=== PATIENT | male | born 1955 | race Caucasian/White ===

== ENCOUNTER 2016-12-23 06:59 | Day surgery (SDC) | payer OTHER ==
[2016-12-18 11:09] VITALS: BMI 30.4
[2016-12-23] MEDS ORDERED: PROPOFOL 20 ML ONE ×4 (07:10→09:34)
[2016-12-23] MEDS ORDERED: LIDOCAINE HCL/PF 2% SDV 5ML VIAL ONE (07:11)
[2016-12-23 10:34] VITALS: BP 113/58; PULSE 64; TEMP 98.1
--- NOTE | 2016-12-24 12:16 | PATH ---
Surgical Pathology Report Patient Name: ADOLFO DHILLON [facility]. Rec. #: [id number] /Age/Gender: 1955 (Age: 61) / M Account: [id number] Location: [facility]OS[facility] Taken: 12/23/2016 Received: 12/23/2016 Reported: 12/24/2016 Physicians: Naveen Moon M.D. Specimen(s) Received A: BX PROXIMAL RIGHT COLON B: BX HEPATIC FLEXURE C: BX 25 CM COLON D: BX 40 CM COLON Clinical History Rule out colon cancer Polyp Final Diagnosis A. COLON, PROXIMAL RIGHT, BIOPSY: TUBULAR ADENOMA. B. COLON, HEPATIC FLEXURE, POLYPECTOMY: MULTIPLE PORTIONS OF TUBULOVILLOUS ADENOMA. NO HIGH GRADE DYSPLASIA OR INVASIVE ADENOCARCINOMA IDENTIFIED. C. COLON, 25 CM, BIOPSY: TUBULAR ADENOMA. D. COLON, 40 CM, POLYPECTOMY: TUBULAR ADENOMA. Comment: Recommend correlation with clinical findings and follow up as clinically indicated. Electronically Signed Juanjose Hidalgo M.D. Gross Description A. Received in formalin, labeled "proximal right colon" is a chandra, polypoid portion of soft tissue measuring 0.4 cm. in greatest dimension. The specimen is submitted in toto in one cassette. B. Received in formalin labeled "hepatic flexure," is a 2.5 x 2.5 x 0.3 cm aggregate of chandra, irregular to polypoid soft tissue fragments. The formalin is filtered and the specimen is entirely submitted in one cassette. C. Received in formalin, labeled "25 cm" is a chandra, irregular portion of soft tissue measuring 0.5 cm. in greatest dimension. The specimen is submitted in toto in one cassette. D. Received in formalin, labeled "40 cm" is a chandra, polypoid portion of soft tissue measuring 0.7 cm. in greatest dimension. The specimen is submitted in toto in one cassette. DL12/23/2016 saudi12/23/2016
== END 2016-12-23 10:36 | disposition home or self-care (01) ==
LOC: FASU-ENDO 06:59
PROVIDERS: ATTEND Internal Medicine Gastroenterology
PROC: 3E0H8GC Introduction of Other Therapeutic Substance into Lower GI, Via Natural or Artificial Opening Endoscopic (ICD-10-PCS; 2016-12-23)
PROC: 0DBK8ZX Excision of Ascending Colon, Via Natural or Artificial Opening Endoscopic, Diagnostic (ICD-10-PCS; principal; 2016-12-23 08:49)
PROC: 0DBN8ZX Excision of Sigmoid Colon, Via Natural or Artificial Opening Endoscopic, Diagnostic (ICD-10-PCS; 2016-12-23 08:49)
DX: Z12.11 Encounter for screening for malignant neoplasm of colon (principal); D12.2 Benign neoplasm of ascending colon; D12.5 Benign neoplasm of sigmoid colon; K57.30 Diverticulosis of large intestine without perforation or abscess without bleeding
CPT/HCPCS: 88305-TC

== ENCOUNTER 2017-06-09 06:51 | Day surgery (SDC) | payer OTHER ==
[2017-06-06 09:50] VITALS: BMI 30.4
[2017-06-09] MEDS ORDERED: PROPOFOL 20 ML ONE ×2 (07:48)
[2017-06-09] MEDS ORDERED: LIDOCAINE HCL/PF 2% SDV 5ML VIAL ONE (07:49)
[2017-06-09 09:35] VITALS: BP 102/63; PULSE 72; TEMP 98
--- NOTE | 2017-06-10 12:11 | PATH ---
Surgical Pathology Report Patient Name: ADOLFO DHILLON [facility]. Rec. #: [id number] /Age/Gender: 1955 (Age: 61) / M Account: [id number] Location: [facility]OS[facility] Taken: 06/09/2017 Received: 06/09/2017 Reported: 06/10/2017 Physicians: Naveen Moon M.D. Specimen(s) Received A: POLYP AT RIGHT COLON B: SPLENIC FLEXURE BIOPSY C: BX SIGMOID Clinical History Preoperative diagnosis: Rule out colon cancer Postoperative diagnosis: Diverticulosis, polyps Final Diagnosis A. COLON, RIGHT, BIOPSY: MULTIPLE PORTIONS OF TUBULOVILLOUS ADENOMA. NO HIGH GRADE DYSPLASIA OR CARCINOMA IDENTIFIED. B. COLON, SPLENIC FLEXURE, BIOPSY: TUBULAR ADENOMA. C. COLON, SIGMOID, BIOPSY: COLONIC MUCOSA WITH SUBMUCOSAL ADIPOSE TISSUE CONSISTENT WITH LIPOMA. Electronically Signed Juanjose Hidalgo M.D. Gross Description A. Received in formalin, labeled "polyp at right colon" are 5 chandra, irregular portions of soft tissue ranging from 0.1-0.4 cm. in greatest dimension. The specimens are submitted in toto in one cassette. B. Received in formalin, labeled "splenic flexure" is a chandra, irregular portion of soft tissue measuring 0.2 cm. in greatest dimension. The specimen is submitted in toto in one cassette. C. Received in formalin, labeled "sigmoid" is a chandra, irregular portion of soft tissue measuring 0.3 cm. in greatest dimension. The specimen is submitted in toto in one cassette. 06/09/2017 saudi06/09/2017
== END 2017-06-09 10:00 | disposition home or self-care (01) ==
LOC: FASU-ENDO 06:51
PROVIDERS: ATTEND Internal Medicine Gastroenterology
PROC: 0DBL8ZZ Excision of Transverse Colon, Via Natural or Artificial Opening Endoscopic (ICD-10-PCS; 2017-06-09)
PROC: 0DBK8ZX Excision of Ascending Colon, Via Natural or Artificial Opening Endoscopic, Diagnostic (ICD-10-PCS; principal; 2017-06-09 08:38)
PROC: 0DBN8ZZ Excision of Sigmoid Colon, Via Natural or Artificial Opening Endoscopic (ICD-10-PCS; 2017-06-09 08:38)
DX: Z12.11 Encounter for screening for malignant neoplasm of colon (principal); Z86.010 Personal history of colon polyps; K57.30 Diverticulosis of large intestine without perforation or abscess without bleeding
CPT/HCPCS: 88305-TC

== ENCOUNTER 2018-06-24 07:48 | Day surgery (SDC) | payer OTHER ==
[2018-06-17 16:34] VITALS: BMI 30.4
[2018-06-24] MEDS ORDERED: LIDOCAINE HCL/PF 2% SDV 5ML VIAL ONE (09:24)
[2018-06-24] MEDS ORDERED: PROPOFOL 20 ML ONE ×2 (09:24)
[2018-06-24 15:30] VITALS: TEMP 97.6
[2018-06-24 15:34] VITALS: BP 111/65; PULSE 65
--- NOTE | 2018-06-29 16:30 | PATH ---
Surgical Pathology Report Patient Name: ADOLFO DHILOLN [facility]. Rec. #: [id number] /Age/Gender: 1955 (Age: 62) / M Account: [id number] Location: [facility] Taken: 06/24/2018 Received: 06/24/2018 Reported: 06/29/2018 Physicians: Naveen Moon M.D. Specimen(s) Received A: PROXIMAL RIGHT COLON B: HEPATIC FLEXURE Clinical History History of polyp Postoperative diagnosis: Diverticulosis, colon polyp, right colon ulcer Final Diagnosis A. PROXIMAL RIGHT COLON, BIOPSY: COLONIC MUCOSA WITH MILD ACUTE COLITIS AND ASSOCIATED ULCERATION. SEE COMMENT. B. COLON, HEPATIC FLEXURE, POLYP, BIOPSY: TUBULAR ADENOMA. Comment: Findings are non-specific. Differential diagnosis includes infection, medication, and possibility of early inflammatory bowel disease. Suggest clinical/endoscopic correlation. . Electronically Signed Ary Holman M.D. Gross Description A. Received in formalin, labeled "biopsy proximal right colon" are 2 chandra, irregular portions of soft tissue measuring 0.4 and 0.6 cm. in greatest dimension. The specimens are submitted in toto in one cassette. B. Received in formalin, labeled "polyp hepatic flexure" are 2 chandra, irregular portions of soft tissue measuring 0.1 and 0.2 cm. in greatest dimension. The specimens are submitted in toto in one cassette. 06/26/2018 [facility]06/26/2018
== END 2018-06-24 10:15 | disposition home or self-care (01) ==
LOC: FASU-ENDO 07:48
PROVIDERS: ATTEND Internal Medicine Gastroenterology
PROC: 0DBK8ZX Excision of Ascending Colon, Via Natural or Artificial Opening Endoscopic, Diagnostic (ICD-10-PCS; 2018-06-24)
PROC: 0DBL8ZX Excision of Transverse Colon, Via Natural or Artificial Opening Endoscopic, Diagnostic (ICD-10-PCS; principal; 2018-06-24 09:00)
DX: Z86.010 Personal history of colon polyps (principal); D12.3 Benign neoplasm of transverse colon; K57.30 Diverticulosis of large intestine without perforation or abscess without bleeding; K51.90 Ulcerative colitis, unspecified, without complications
CPT/HCPCS: 88305-TC

== ENCOUNTER 2018-09-04 06:45 | Day surgery (SDC) | payer OTHER ==
[2018-09-01 10:48] VITALS: BMI 30.4
[2018-09-04] MEDS ORDERED: MIDAZOLAM HCL 2 MG/2 ML SINGLE DOSE VIAL ONE ×2 (08:49→09:41)
[2018-09-04] MEDS ORDERED: ROPIVACAINE HCL 0.5% 30ML VIAL ONE (08:49)
[2018-09-04] MEDS ORDERED: PROPOFOL 20 ML ONE ×3 (09:37→10:05)
[2018-09-04] MEDS ORDERED: PROMETHAZINE HCL 25 MG/1 ML VIAL IVPUSH PRN (11:00)
[2018-09-04] MEDS ORDERED: ONDANSETRON 4 MG/2 ML VIAL IVPUSH PRN (11:00)
[2018-09-04] MEDS ORDERED: oxyCODONE HCL 5 MG TABLET PO PRN (11:00)
[2018-09-04] MEDS ORDERED: ACETAMINOPHEN 1000 MG/100 ML VIAL (NON FORMULARY) IVPB ONE ×2 (11:01→11:12)
[2018-09-04] MEDS ORDERED: ACETAMINOPHEN INJECTION 100 ML IVPB ONE (11:08)
[2018-09-04] MEDS ORDERED: ACETAMINOPHEN 325 MG TABLET (FP) PO SCH (11:15)
[2018-09-04 12:50] VITALS: TEMP 98.1
[2018-09-04 12:58] VITALS: BP 131/79; PULSE 66
[2018-09-04] MEDS ORDERED: GABAPENTIN 300 MG CAPSULE (FP) PO SCH (22:00)
--- NOTE | 2018-09-05 06:33 | OP ---
DATE OF OPERATION: 09/04/2018 Done at [facility]. SURGEON: Tomer Lozada MD SECTION MAINTAINER: ALCON Zelaya PREOPERATIVE DIAGNOSES: 1. Left shoulder rotator cuff tear. 2. Left shoulder adhesive capsulitis. 3. Left shoulder impingement syndrome. 4. Left shoulder acromioclavicular joint disease. 5. Left shoulder superior labrum tear anterior/posterior with synovitis. POSTOPERATIVE DIAGNOSES: 1. Left shoulder rotator cuff tear. 2. Left shoulder adhesive capsulitis. 3. Left shoulder impingement syndrome. 4. Left shoulder acromioclavicular joint disease. 5. Left shoulder superior labrum tear anterior/posterior with synovitis. PROCEDURE: 1. Left shoulder arthroscopy with arthroscopic rotator cuff repair (CPT code 06771). 2. Left shoulder arthroscopy with lysis and resection of adhesions (CPT code 84933). 3. Left shoulder arthroscopy with subacromial decompression (CPT code 57820). 4. Left shoulder arthroscopy with resection of distal clavicle, acromioclavicular joint (CPT code 06786). 5. Left shoulder arthroscopy with debridement (CPT code 03529). FINDINGS: 1. Chronic missing torn biceps tendon. 2. Diffuse grade 1 to 2 cartilage injury, glenoid and humerus. 3. Glenohumeral synovitis with adhesions and scar tissue. 4. Superior labrum tear anterior/posterior with extension into biceps stump, type 4. 5. Partial tear, subscapularis. 6. Full-thickness supraspinatus tear, anterior portion. 7. Type 2 acromion with anterior and lateral spurring. 8. Thickened scar, subacromial space with adhesions and scar tissue. 9. Inferior spur, distal clavicle, with acromioclavicular joint disease. PROCEDURE: Informed consent was obtained. The patient was taken to the operating room, where the upper extremity was prepped and draped in a sterile fashion. The shoulder was manipulated for a full range of motion. A posterior incision portal was made and directed to the glenohumeral joint. Under direct visualization, an anterior incision and portal was made. Extensive synovitis as well as chondral injuries throughout the glenohumeral joint were debrided and removed. Any identified labral injuries, including the superior labral tear, anterior and posterior, and anterior labrum torn portions, were removed as well. The rotator cuff was visualized and noted to have a full-thickness tear. The edges were debrided. The posterior incision portal was redirected to the subacromial space where a lateral incision portal was made. Excessive and thickened scar tissue noted throughout the subacromial space, including bursal and scar tissue, were removed. The type 2 acromion was converted into a flattened type 1 using a bur for subacromial decompression. The distal inferior spur at the distal clavicle was also debrided with the use of an accessory portal in the acromioclavicular joint. The edges of the rotator cuff were identified. Sutures were placed into the rotator cuff and secured using anchors through the greater tuberosity. Prior to securing, a bleeding bed was made using a small bur, creating a bleeding surface of the rotator cuff insertion. The shoulder was then drained, a single suture was placed in all portals, a sterile dressing was placed and the patient was transferred to the recovery room without complication. The PA listed above was present and assisted at surgery. Their presence was absolutely medically necessary for the completion of the procedure. They helped hold the arthroscopy, pass instruments (and implants when indicated) and the procedure could not have been completed without their assistance. ADDENDUM: Repair Type: Two mattress sutures were placed into the supraspinatus secured to a bleeding bone bed using the Opus and Marga anchors. TOMER LOZADA M.D. [id number]
== END 2018-09-04 12:40 | disposition home or self-care (01) ==
LOC: FASU 06:45
PROVIDERS: ATTEND Orthopaedic Surgery
PROC: 0RNK4ZZ Release Left Shoulder Joint, Percutaneous Endoscopic Approach (ICD-10-PCS; 2018-09-04)
PROC: 0PBB4ZZ Excision of Left Clavicle, Percutaneous Endoscopic Approach (ICD-10-PCS; 2018-09-04)
PROC: 0RBK4ZZ Excision of Left Shoulder Joint, Percutaneous Endoscopic Approach (ICD-10-PCS; 2018-09-04)
PROC: 0LQ24ZZ Repair Left Shoulder Tendon, Percutaneous Endoscopic Approach (ICD-10-PCS; principal; 2018-09-04 09:00)
DX: M75.112 Incomplete rotator cuff tear or rupture of left shoulder, not specified as traumatic (principal); M75.02 Adhesive capsulitis of left shoulder; M75.42 Impingement syndrome of left shoulder; M19.019 Primary osteoarthritis, unspecified shoulder; M65.812 Other synovitis and tenosynovitis, left shoulder; S43.432A Superior glenoid labrum lesion of left shoulder, initial encounter; X58.XXXA Exposure to other specified factors, initial encounter; Y93.9 Activity, unspecified; Y92.9 Unspecified place or not applicable
CPT/HCPCS: 94760; J0131